=== PATIENT | female | born 1980 | race Caucasian/White ===

== ENCOUNTER 2016-08-16 02:40 | Emergency (ER) | payer SELFPAY ==
[~2016-08-16] VITALS: Ht 147.3 cm; Wt 42.6 kg
[~2016-08-16 02:40] MED LIST: A/B OTIC 54 MG/15 ML OT; AUGMENTIN 875 M1 TAB PO; BENTYL20 M1 PO; REGLAN10 M1 PO; ZOFRAN ODT4 M1 PO; ZOFRAN4 M2 PO
--- NOTE | 2016-08-16 03:10 | ED GI/GU/ABDOMINAL COMPLAINT ---
History of Present Illness General Chief Complaint: Abdominal Pain/Flank Pain Stated Complaint: RT SIDE ABD PAIN + V X'S 1 HR Source: patient Exam Limitations: no limitations Vital Signs & Intake/Output Vital Signs & Intake/Output Vital Signs Date Time Temp Pulse Resp B/P B/P Pulse O2 O2 Flow FiO2 Mean Ox Delivery Rate 08/16 0714 97.1 56 18 104/66 99 Room Air 08/16 0308 98.7 82 18 121/77 97 Room Air Allergies Coded Allergies: NO KNOWN ALLERGIES (11/06/15) Reconcile Medications No Known Home Medications Triage Note: TRIAGE: PATIENT TO ER FROM HOME REPORTING 11/21 PAIN TO R SIDE ENTIRE ABDOMEN SINCE APPROX 0030 TONIGHT, +N/V/D. REPORTS BEGAN W/ ONE EPISODE CLEAR WATERY DIARRHEA AND PROGRESSED TO N/V. AFEBRILE IN TRIAGE. MOANING/ CRYING LOUDLY. Triage Nurses Notes Reviewed? yes ? N Is pt currently ? No Onset: Abrupt Duration: hour(s): (2) Timing: multiple episodes today Radiation: back Associated Symptoms: abdominal pain, nausea/vomiting HPI: 36-year-old female presents with sudden onset of right flank pain, nausea and vomiting 2 hours prior to arrival. She just returned [place] [facility] and was ready to go to bed. She then felt she had to have a bowel movement. She completed some crampy right lower quadrant abdominal pain. She had one loose episode of stool and then developed vomited multiple times. Currently her pain is in the right flank. Denies any dysuria. Denies any fever or chills. No history similar symptoms. No trauma. LMP was August 02. (ANTONI AGUILAR MD) Past History Travel History Traveled to [place] past 21 day No Medical History Any Pertinent Medical History? 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 No (ANTONI AGUILAR MD) Review of Systems Review of Systems Constitutional: Denies: chills, fever. EENTM: Reports: no symptoms. Respiratory: Reports: no symptoms. Cardiovascular: Reports: no symptoms. GI: Reports: abdominal pain, nausea, vomiting. Genitourinary: Denies: discharge, dysuria. Musculoskeletal: Reports: back pain. Skin: Reports: no symptoms. Neurological/Psychological: Reports: no symptoms. Hematologic/Endocrine: Denies: bruising, bleeding, polyuria, polydipsia. Immunologic/Allergic: Reports: no symptoms. All Other Systems: Reviewed and Negative (ANTONI AGUILAR MD) Physical Exam Physical Exam General Appearance: alert, awake, anxious, moderate distress, thin Head: atraumatic, normal appearance Eyes: Bilateral: normal appearance, PERRL, EOMI. Ears, Nose, Throat, Mouth: hearing grossly normal, moist mucous membrane Neck: normal inspection, supple, full range of motion Respiratory: normal breath sounds, chest non-tender, no respiratory distress Cardiovascular: regular rate/rhythm Peripheral Pulses: 2+ radial (R), 2+ radial (L) Gastrointestinal: normal bowel sounds, soft, tenderness (RUQ) Back: CVA tenderness (R) Neurologic/Psych: no motor/sensory deficits, awake, alert, oriented x 3 Skin: intact, normal color, warm/dry Core Measures ACS in differential dx? No Severe Sepsis Present: No Septic Shock Present: No (ANTONI AGUILAR MD) Progress Differential Diagnosis: biliary colic, cholecystitis, kidney stone, peptic ulcer , PUD/GERD, UTI/pyelo Plan of Care: Orders Procedure Date/time Status CBC WITHOUT DIFFERENTIAL 08/16 06 Complete URINALYSIS 08/16 258 Complete TROPONIN LEVEL 08/16 257 Complete LIPASE 08/16 257 Complete HUMAN BETA HCG SCREEN 08/16 257 Complete COMPREHENSIVE METABOLIC PANEL 08/16 257 Complete CBC WITHOUT DIFFERENTIAL 08/16 257 Complete AMYLASE 08/16 257 Complete Laboratory Tests 08/16/16 0621: CBC w Diff MAN DIFF ORDERED, RBC 3.71 L, MCV 96.6, MCH 32.7 H, RDW 13.4, MPV 7.7, Gran % 89.7 H, Lymphocytes % 6.8 L, Monocytes % 2.9, Eosinophils % 0.2, Basophils % 0.4, Absolute Granulocytes 14.8 H, Segmented Neutrophils 92 H, Absolute Lymphocytes 1.1 L, Lymphocytes 6 L, Monocytes 2, Absolute Monocytes 0.5, Absolute Eosinophils 0, Absolute Basophils 0.1, Platelet Estimate ADEQUATE, Normocytic RBCs VERIFIED, Normochromic RBCs VERIFIED, PUBS MCHC 33.9, Fld Total RBCs Counted 100 08/16/16 0414: Urinalysis LIGHT H, Urine Color YEL, Urine Clarity HAZY H, Urine pH 7.5, Ur Specific Eccles 1.015, Urine Protein TRACE H, Urine Ketones NEG, Urine Nitrite NEG, Urine Bilirubin NEG, Urine Urobilinogen 0.2, Ur Leukocyte Esterase NEG, Ur Microscopic SEDIMENT EXAMINED, Urine RBC 5-10 H, Urine WBC 3-5 H, Ur Epithelial Cells FEW, Urine Bacteria FEW H, Urine Mucus FEW, Urine Hemoglobin SMALL H, Urine Glucose NEG 08/16/16 0316: Total Beta HCG Cancelled 08/16/16 0300: Anion Gap 12, Estimated GFR > 60, BUN/Creatinine Ratio 18.6, Glucose 81, Calcium 9.3, Total Bilirubin 0.3, AST 27, ALT 30, Alkaline Phosphatase 67, Troponin I < 0.01, Total Protein 6.8, Albumin 4.4, Globulin 2.4, Albumin/Globulin Ratio 1.8, Amylase 99, Lipase 133, Total Beta HCG NEGATIVE, CBC w Diff MAN DIFF ORDERED, RBC 4.24, MCV 96.6, MCH 32.8 H, RDW 13.5, MPV 8.1, Gran % 86.2 H, Lymphocytes % 7.9 L, Monocytes % 4.8, Eosinophils % 0.7, Basophils % 0.4, Absolute Granulocytes 19.5 H, Segmented Neutrophils 84 H, Absolute Lymphocytes 1.8, Lymphocytes 10 L, Monocytes 6, Absolute Monocytes 1.1 H, Absolute Eosinophils 0.1, Absolute Basophils 0.1, Platelet Estimate ADEQUATE, Normochromic RBCs VERIFIED, Ovalocytes FEW, PUBS MCHC 33.9, Fld Total RBCs Counted 100 Diagnostic Imaging: Viewed by Me: CT Scan. Discussed w/RAD: CT Scan. Radiology Impression: PATIENT: OLESYA FLORES PRESENT AGE: 36 PATIENT ACCOUNT NO: [id number] : 79 LOCATION: [facility] ORDERING PHYSICIAN: ANTONI AGUILAR MD SERVICE DATE: 08/16/16 EXAM TYPE: CAT - CT ABD & PELVIS W IV CONTRAST EXAMINATION: CT ABDOMEN AND PELVIS WITH CONTRAST CLINICAL INFORMATION: Right flank pain. Vomiting. WBC count elevated COMPARISON: None TECHNIQUE: Multidetector volumetric imaging was performed of the abdomen and pelvis after the IV administration of 95 mL of Optiray 320 intravenous contrast. Sagittal and coronal reformatted images were obtained on the technologist's workstation. DLP: 223.31 mGy-cm FINDINGS: LUNG BASES: The visualized lung bases are unremarkable. LIVER, GALLBLADDER, AND BILIARY TREE: The liver is normal in size, shape, and attenuation. No focal hepatic lesion or biliary ductal dilatation is present. The gallbladder is unremarkable with no evidence of radiopaque gallstones, gallbladder wall thickening, or obvious pericholecystic inflammatory changes. PANCREAS: Unremarkable. SPLEEN: Unremarkable. ADRENAL GLANDS: Unremarkable. KIDNEYS AND URETERS: The kidneys are normal in size, shape, and attenuation. No hydronephrosis, hydroureter, or calculi seen. No perinephric stranding. BLADDER: Unremarkable. GASTROINTESTINAL TRACT: No acute change of the bowel. No bowel obstruction. No bowel wall thickening or edema. Moderate to large-volume of stool in colon. Largest collection of stool in the cecum ascending and transverse colon. The appendix is normal. The small bowel loops are unremarkable. ABDOMINAL WALL: No significant hernia is appreciated. LYMPH NODES: Normal. VASCULAR: Unremarkable. PELVIC VISCERA: Uterus is anteverted. No adnexal abnormality. No fluid in the cul-de- sac. OSSEOUS STRUCTURES: Grade 1 anterolisthesis of L5 on S1 with bilateral spondylolysis of the L5 pars interarticularis. IMPRESSION: No acute abnormality CT scan abdomen and pelvis. Normal kidneys, ureter and bladder. Normal appendix. DICTATED BY: ARLINE LEMONS MD DATE/TIME DICTATED:08/16/16426 MEDICAL OFFICE SCHEDULER :LEONIDAS DATE/TIME TRANSCRIBED:08/16/16426 CONFIDENTIAL, DO NOT COPY WITHOUT APPROPRIATE AUTHORIZATION. <Electronically signed in Other Vendor System> SIGNED BY: ARLINE LEMONS MD 08/16/16 0435 Initial ED EKG: none Hand-Off Endorsed To: ROME JOHNSON MD Endorsed Time: 710 Pending: labs (REPEAT CBC), other (PO [place]ALL[place]GE) (JEFF TATUM,ANTONI) Comments: White blood cell count is decreasing. Patient continues to feel comfortable. Patient will be discharged home. Patient has been advised of lab results and CAT scan results. Questions answered. (ROME JOHNSON MD) Departure Departure Condition: Stable Clinical Impression Primary Impression: Right flank pain Referrals: LIZA TATUM,LUCY (PCP/Family) Departure Forms: Customer Survey General Discharge Information Prescriptions: Current Visit Scripts No Known Home Medications (JEFF TATUM,ANTONI) Departure Disposition: HOME OR SELF CARE Additional Instructions: Take Motrin as needed for the pain. Return if symptoms worsen or for any concerns. (ALEX TATUM,ROME Weiss)
[2016-08-16 03:30] LABS: ABSOLUTE BASOPHIL COUNT 0.1 /CUMM (0.0-0.2); ABSOLUTE EOSINOPHIL COUNT 0.1 /CUMM (0.0-0.7); ABSOLUTE GRANULOCYTE CT 19.5 /CUMM (1.4-6.5); ABSOLUTE LYMPH COUNT 1.8 /CUMM (1.2-3.4); ABSOLUTE MONOCYTE COUNT 1.1 /CUMM (0.10-0.60); BASOPHIL % 0.4 % (0.0-2.0); EOSINOPHIL % 0.7 % (0-5); GRANULOCYTE % 86.2 % (42.2-75.2); HEMATOCRIT 40.9 % (37-47); MEAN CORPUSCULAR HGB 32.8 PG (27.0-31.0); MEAN CORPUSCULAR HGB CONC 33.9 G/DL (33.0-37.0); MEAN CORPUSCULAR VOLUME 96.6 FL (81.0-99.0); MEAN PLATELET VOLUME 8.1 FL (7.4-10.4); PLATELET COUNT 242 /CUMM (130-400); RBC DISTRIBUTION WIDTH 13.5 % (11.5-14.5); RED BLOOD CELL CT 4.24 /CUMM (4.20-5.40); WHITE BLOOD CELL COUNT 22.7 /CUMM (4.8-10.8)
--- NOTE | 2016-08-16 04:35 | CT SCAN REPORT ---
EXAMINATION: CT ABDOMEN AND PELVIS WITH CONTRAST CLINICAL INFORMATION: Right flank pain. Vomiting. WBC count elevated COMPARISON: None TECHNIQUE: Multidetector volumetric imaging was performed of the abdomen and pelvis after the IV administration of 95 mL of Optiray 320 intravenous contrast. Sagittal and coronal reformatted images were obtained on the technologist's workstation. DLP: 223.31 mGy-cm FINDINGS: LUNG BASES: The visualized lung bases are unremarkable. LIVER, GALLBLADDER, AND BILIARY TREE: The liver is normal in size, shape, and attenuation. No focal hepatic lesion or biliary ductal dilatation is present. The gallbladder is unremarkable with no evidence of radiopaque gallstones, gallbladder wall thickening, or obvious pericholecystic inflammatory changes. PANCREAS: Unremarkable. SPLEEN: Unremarkable. ADRENAL GLANDS: Unremarkable. KIDNEYS AND URETERS: The kidneys are normal in size, shape, and attenuation. No hydronephrosis, hydroureter, or calculi seen. No perinephric stranding. BLADDER: Unremarkable. GASTROINTESTINAL TRACT: No acute change of the bowel. No bowel obstruction. No bowel wall thickening or edema. Moderate to large-volume of stool in colon. Largest collection of stool in the cecum ascending and transverse colon. The appendix is normal. The small bowel loops are unremarkable. ABDOMINAL WALL: No significant hernia is appreciated. LYMPH NODES: Normal. VASCULAR: Unremarkable. PELVIC VISCERA: Uterus is anteverted. No adnexal abnormality. No fluid in the cul-de-sac. OSSEOUS STRUCTURES: Grade 1 anterolisthesis of L5 on S1 with bilateral spondylolysis of the L5 pars interarticularis. IMPRESSION: No acute abnormality CT scan abdomen and pelvis. Normal kidneys, ureter and bladder. Normal appendix.
[2016-08-16 06:39] LABS: ABSOLUTE BASOPHIL COUNT 0.1 /CUMM (0.0-0.2); ABSOLUTE EOSINOPHIL COUNT 0 /CUMM (0.0-0.7); ABSOLUTE GRANULOCYTE CT 14.8 /CUMM (1.4-6.5); ABSOLUTE LYMPH COUNT 1.1 /CUMM (1.2-3.4); ABSOLUTE MONOCYTE COUNT 0.5 /CUMM (0.10-0.60); BASOPHIL % 0.4 % (0.0-2.0); EOSINOPHIL % 0.2 % (0-5); GRANULOCYTE % 89.7 % (42.2-75.2); MEAN CORPUSCULAR HGB 32.7 PG (27.0-31.0); MEAN CORPUSCULAR HGB CONC 33.9 G/DL (33.0-37.0); MEAN CORPUSCULAR VOLUME 96.6 FL (81.0-99.0); MEAN PLATELET VOLUME 7.7 FL (7.4-10.4); PLATELET COUNT 215 /CUMM (130-400); RBC DISTRIBUTION WIDTH 13.4 % (11.5-14.5); RED BLOOD CELL CT 3.71 /CUMM (4.20-5.40); WHITE BLOOD CELL COUNT 16.5 /CUMM (4.8-10.8)
[2016-08-16 06:45] LABS: HEMATOCRIT 35.8 % (37-47)
[2016-08-16 07:14] VITALS: BP 104/66
== END 2016-08-16 08:08 ==
LOC: ERH 02:40
PROVIDERS: Emergency Medicine
DX: R10.31 Right lower quadrant pain (principal)
CPT/HCPCS: 74177; 81001; 96361; 96374; 96375; J1885; J2405